=== PATIENT | female | born 1950 | race African-American/Black ===

== ENCOUNTER 2017-12-02 07:21 | Emergency (ER) | payer MEDICARE ==
[2017-12-02] MEDS: IPRATRPIUM/ALBUTEROL 0.5/2.5MG 3 ML NEBU. NEB (08:33)
== END 2017-12-02 09:20 | disposition home or self-care (01) ==
LOC: ER 07:21
DX: R05 Cough (principal); G93.3 Postviral and related fatigue syndromes; E03.9 Hypothyroidism, unspecified; I10 Essential (primary) hypertension
CPT/HCPCS: 71046; 94640; 99284; J7620

== ENCOUNTER 2018-04-21 00:27 | Emergency (ER) | payer MEDICARE ==
[~2018-04-21] VITALS: Ht 167.6 cm; Wt 78.0 kg
[~2018-04-21 00:27] MED LIST: BENZ100C PO; CELE100C PO; DIME1CAP PO; HYDR15SO4 PO; LEVO25TA4 PO; LISI2.5T PO; PROAIR HFA8.5 GM INH
--- NOTE | 2018-04-21 00:58 | PHYS DOC ---
Past Medical History Past Medical History: Hypertension, Hypothyroid, Other Additional Past Medical Histor: MS Past Surgical History: Other Alcohol Use: None Drug Use: None Adult General Chief Complaint Chief Complaint: MULTIPLE COMPLAINTS HPI HPI Patient is a 67 year old female who presents with left-sided back pain and abdominal pain with nausea and vomiting. Patient states that the pain started this evening suddenly and she did not have any diarrhea with it. Patient states at first she thought it felt similar to when she was having her gallbladder attacks but that it was more intense and in the back as well. Patient states that since then multiple episodes of vomiting including one in the emergency department after arriving, the back pain is now gone and that she is starting to feel better. There are currently no other acute complaints at this time. Review of Systems Review of Systems Constitutional: Denies fever or chills [] Eyes: Denies change in visual acuity, redness, or eye pain [] HENT: Denies nasal congestion or sore throat [] Respiratory: Denies cough or shortness of breath [] Cardiovascular: No additional information not addressed in HPI [] GI: Positive for abdominal pain, nausea, vomiting, denies bloody stools or diarrhea [] : Denies dysuria or hematuria [] Musculoskeletal: Positive for back pain, negative joint pain [] Integument: Denies rash or skin lesions [] Neurologic: Denies headache, focal weakness or sensory changes [] Endocrine: Denies polyuria or polydipsia [] All other systems were reviewed and found to be within normal limits, except as documented in this note. Current Medications Current Medications Current Medications Medications (Trade) Dose Ordered Sig/[facility] Start Time Stop Time Status Last Admin Dose Admin Ketorolac Tromethamine (Toradol 30mg Vial) 30 mg 1X ONCE 04/21/18 03:00 04/21/18 03:01 DC 04/21/18 02:41 30 MG Ondansetron HCl (Zofran) 4 mg 1X ONCE 04/21/18 01:30 04/21/18 01:31 DC 04/21/18 01:42 4 MG Sodium Chloride 1,000 ml @ 125 mls/hr 1X ONCE 04/21/18 01:30 04/21/18 09:29 04/21/18 01:43 125 MLS/HR Allergies Allergies Allergies Coded Allergies Type Severity Reaction Last Updated Verified No Known Drug Allergies 12/02/17 No Physical Exam Physical Exam Constitutional: Well developed, well nourished, no acute distress, non-toxic appearance. [] HENT: Normocephalic, atraumatic, bilateral external ears normal, oropharynx moist, no oral exudates, nose normal. [] Eyes: PERRLA, EOMI, conjunctiva normal, no discharge. [] Neck: Normal range of motion, no tenderness, supple, no stridor. [] Cardiovascular:Heart rate regular rhythm, no murmur [] Lungs & Thorax: Bilateral breath sounds clear to auscultation [] Abdomen: Bowel sounds normal, soft, no tenderness, no masses, no pulsatile masses. [] Skin: Warm, dry, no erythema, no rash. [] Back: No tenderness, left CVA tenderness. [] Extremities: No tenderness, no cyanosis, no clubbing, ROM intact, no edema. [] Neurologic: Alert and oriented X 3, normal motor function, normal sensory function, no focal deficits noted. [] Psychologic: Affect normal, judgement normal, mood normal. [] Current Patient Data Vital Signs Vital Signs Date Time Temp Pulse Resp B/P (MAP) Pulse Ox O2 Delivery O2 Flow Rate FiO2 04/21/18 02:35 62 163/72 (102) 96 Room Air 04/21/18 00:55 97.8 20 97.8 Lab Values Laboratory Tests Test 04/21/18 00:50 04/21/18 01:40 White Blood Count 11.9 x10^3/uL (4.0-11.0) H Red Blood Count 5.09 x10^6/uL (3.50-5.40) Hemoglobin 12.5 g/dL (12.0-15.5) Hematocrit 39.0 % (36.0-47.0) Mean Corpuscular Volume 77 fL (79-100) L Mean Corpuscular Hemoglobin 25 pg (25-35) Mean Corpuscular Hemoglobin Concent 32 g/dL (31-37) Red Cell Distribution Width 13.8 % (11.5-14.5) Platelet Count 253 x10^3/uL (140-400) Neutrophils (%) (Auto) 88 % (31-73) H Lymphocytes (%) (Auto) 7 % (24-48) L Monocytes (%) (Auto) 4 % (0-9) Eosinophils (%) (Auto) 0 % (0-3) Basophils (%) (Auto) 1 % (0-3) Neutrophils # (Auto) 10.4 x10^3uL (1.8-7.7) H Lymphocytes # (Auto) 0.9 x10^3/uL (1.0-4.8) L Monocytes # (Auto) 0.5 x10^3/uL (0.0-1.1) Eosinophils # (Auto) 0.0 x10^3/uL (0.0-0.7) Basophils # (Auto) 0.1 x10^3/uL (0.0-0.2) Segmented Neutrophils % 72 % (35-66) H Band Neutrophils % 1 % (0-9) Lymphocytes % 18 % (24-48) L Monocytes % 7 % (0-10) Eosinophils % 1 % (0-5) Basophils % 1 % (0-3) Platelet Estimate Adequate (ADEQUATE) Hypochromasia Slight Sodium Level 144 mmol/L (136-145) Potassium Level 4.0 mmol/L (3.5-5.1) Chloride Level 104 mmol/L (98-107) Carbon Dioxide Level 26 mmol/L (21-32) Anion Gap 14 (6-14) Blood Urea Nitrogen 13 mg/dL (7-20) Creatinine 1.0 mg/dL (0.6-1.0) Estimated GFR (Cockcroft-Gault) 66.9 BUN/Creatinine Ratio 13 (6-20) Glucose Level 135 mg/dL (70-99) H Calcium Level 9.2 mg/dL (8.5-10.1) Total Bilirubin 1.3 mg/dL (0.2-1.0) H Aspartate Amino Transferase (AST) 30 U/L (15-37) Alanine Aminotransferase (ALT) 29 U/L (14-59) Alkaline Phosphatase 99 U/L (46-116) Troponin I Quantitative < 0.017 ng/mL (0.000-0.055) Total Protein 8.1 g/dL (6.4-8.2) Albumin 4.4 g/dL (3.4-5.0) Albumin/Globulin Ratio 1.2 (1.0-1.7) Amylase Level 74 U/L (25-115) Lipase 83 U/L (73-393) Thyroid Stimulating Hormone (TSH) 6.756 uIU/mL (0.358-3.74) H Urine Collection Type Unknown Urine Color Yellow Urine Clarity Cloudy Urine pH 7.0 Urine Specific [place] 1.020 Urine Protein Negative mg/dL (NEG-TRACE) Urine Glucose (UA) Negative mg/dL (NEG) Urine Ketones (Stick) Negative mg/dL (NEG) Urine Blood Small (NEG) Urine Nitrite Negative (NEG) Urine Bilirubin Negative (NEG) Urine Urobilinogen Dipstick 1.0 mg/dL (0.2 mg/dL) Urine Leukocyte Esterase Small (NEG) Urine RBC 11-20 /HPF (0-2) Urine WBC 11-20 /HPF (0-4) Urine Squamous Epithelial Cells Many /LPF Urine Bacteria Many /HPF (0-FEW) Urine Mucus Mod /LPF Laboratory Tests 04/21/18 00:50 Laboratory Tests 04/21/18 00:50 EKG EKG Normal sinus rhythm at a rate of 64[] Radiology/Procedures Radiology/Procedures [facility] [address] [place] [address] IMAGING REPORT Signed PATIENT: CHANCE CAIN ACCOUNT: [id number] : 1950 LOCATION: ER AGE: 67 SEX: F EXAM STATUS: REG ER ORD. PHYSICIAN: JANENE BARCLAY MD REASON: back pain/hematuria PROCEDURE: CT ABDOMEN PELVIS WO CONTRAST CT abdomen and pelvis without contrast: Reason for examination: Back pain and hematuria. Helical images were obtained through the abdomen and pelvis with no intravenous or oral contrast administered. Reconstruction was performed in sagittal and coronal planes. Exposure: One or more of the following individualized dose reduction techniques were utilized for this examination: 1. Automated exposure control 2. Adjustment of the mA and/or kV according to patient size 3. Use of iterative reconstruction technique. The lung oates show some dependent atelectasis. The heart size is normal with no pericardial effusion seen. No abnormalities in the liver, spleen, adrenal glands or pancreas. The gallbladder surgically absent. The right kidney shows no renal masses, renal calculi, hydronephrosis or evidence of obstructive uropathy. The left kidney however shows some perinephric stranding. There is no renal mass but there is hydronephrosis which appears to be due to a 4.4 mm calculus in the mid left ureter. No abnormality seen at the appendix. There are diverticuli in the sigmoid colon but no evidence of diverticulitis. The abdominal aorta and inferior vena cava show no acute abnormalities. No abnormality seen at the bladder, uterus or ovaries. No free fluid or free air seen in the abdomen or pelvis. There are degenerative changes with disc disease at the L5-S1 level. No acute bony abnormalities are seen. IMPRESSION: 4.4 mm calculus in the mid left ureter causing obstructive uropathy with moderate hydronephrosis. Diverticulosis in the sigmoid colon without evidence of diverticulitis. Degenerative spondylosis at the L5-S1 disc level. Electronically signed by: Jessica Taylor MD (04/21/2018 2:53 AM) [facility] DICTATED and SIGNED BY: JESSICA TAYLOR MD DATE: 04/21/18246 [] Course & Med Decision Making Course & Med Decision Making Pertinent Labs and Imaging studies reviewed. (See chart for details) Patient feels markedly better and currently has no acute complaints at this time. [] Dragon Disclaimer Dragon Disclaimer This electronic medical record was generated, in whole or in part, using a voice recognition dictation system. Departure Departure Impression: Primary Impression: Kidney stone on left side Additional Impression: UTI (urinary tract infection) Disposition: 01 HOME, SELF-CARE Condition: STABLE Referrals: SHIRLENE BUNN (PCP) CHACORTA BAKER MD Patient Instructions: Kidney Stones, [id number], Urinary Tract Infection, [id number] Scripts Ciprofloxacin Hcl (CIPRO) 250 Mg Tablet 1 TAB PO BID, #14 TAB Prov: JANENE BARCLAY MD 04/21/18 Promethazine Hcl (PROMETHAZINE HCL) 25 Mg Tablet 1 TAB PO PRN Q6HRS, #20 TAB Prov: JANENE BARCLAY MD 04/21/18 Oxycodone/Apap 5-325 (PERCOCET 5-325 MG TABLET) 1 Each Tablet 1-2 TAB PO Q4-6HRS, #40 TAB Prov: JANENE BARCLAY MD 04/21/18 Tamsulosin Hcl (FLOMAX) 0.4 Mg Cap.er.24h 1 CAP PO DAILY for 7 Days, #7 CAP 1 Refill Prov: JANENE BARCLAY MD 04/21/18 Problem Qualifiers JANENE BARCLAY MD Apr 21, 2018 00:58
[2018-04-21] MEDS ORDERED: IV NORMAL SALINE 1000ML BAG 1,000 ML IV ONE (01:30)
[2018-04-21] MEDS ORDERED: ONDANSETRON PF 4 MG/2 ML VIAL. IV ONE (01:30)
[2018-04-21 01:34] LABS: BASO # 0.1 x10^3/uL (0.0-0.2); BASO % 1 % (0-3); EOS % 0 % (0-3); HEMOGLOBIN 12.5 g/dL (12.0-15.5); LYMPH # 0.9 x10^3/uL (1.0-4.8); LYMPH % 7 % (24-48); MEAN CORPUSCULAR HEMOGLOBIN 25 pg (25-35); MEAN CORPUSCULAR HGB CONC 32 g/dL (31-37); MEAN CORPUSCULAR VOLUME 77 fL (79-100); MONO # 0.5 x10^3/uL (0.0-1.1); MONO % 4 % (0-9); NEUT # 10.4 x10^3uL (1.8-7.7); NEUT % 88 % (31-73); PLATELET COUNT 253 x10^3/uL (140-400); RED BLOOD COUNT 5.09 x10^6/uL (3.50-5.40); RED CELL DISTRIBUTION WIDTH 13.8 % (11.5-14.5); WHITE BLOOD COUNT 11.9 x10^3/uL (4.0-11.0)
[2018-04-21 01:45] LABS: CALCIUM 9.2 mg/dL (8.5-10.1); GFR 66.9
[2018-04-21 01:51] LABS: ALBUMIN 4.4 g/dL (3.4-5.0); ALBUMIN/GLOBULIN RATIO 1.2 (1.0-1.7); TOTAL BILIRUBIN 1.3 mg/dL (0.2-1.0); TOTAL PROTEIN 8.1 g/dL (6.4-8.2)
[2018-04-21 02:04] LABS: BILIRUBIN,URINE NEGATIVE (NEG); CLARITY,URINE CLOUDY; COLOR,URINE YELLOW; NITRITE,URINE NEGATIVE (NEG); PROTEIN,URINE NEGATIVE (NEG-TRACE)
[2018-04-21 02:17] LABS: BACTERIA,URINE MANY /HPF (0-FEW); SQUAMOUS EPITHELIAL CELL,UR MANY /LPF
--- NOTE | 2018-04-21 02:56 | RAD ---
CT abdomen and pelvis without contrast: Reason for examination: Back pain and hematuria. Helical images were obtained through the abdomen and pelvis with no intravenous or oral contrast administered. Reconstruction was performed in sagittal and coronal planes. Exposure: One or more of the following individualized dose reduction techniques were utilized for this examination: 1. Automated exposure control 2. Adjustment of the mA and/or kV according to patient size 3. Use of iterative reconstruction technique. The lung oates show some dependent atelectasis. The heart size is normal with no pericardial effusion seen. No abnormalities in the liver, spleen, adrenal glands or pancreas. The gallbladder surgically absent. The right kidney shows no renal masses, renal calculi, hydronephrosis or evidence of obstructive uropathy. The left kidney however shows some perinephric stranding. There is no renal mass but there is hydronephrosis which appears to be due to a 4.4 mm calculus in the mid left ureter. No abnormality seen at the appendix. There are diverticuli in the sigmoid colon but no evidence of diverticulitis. The abdominal aorta and inferior vena cava show no acute abnormalities. No abnormality seen at the bladder, uterus or ovaries. No free fluid or free air seen in the abdomen or pelvis. There are degenerative changes with disc disease at the L5-S1 level. No acute bony abnormalities are seen. IMPRESSION: 4.4 mm calculus in the mid left ureter causing obstructive uropathy with moderate hydronephrosis. Diverticulosis in the sigmoid colon without evidence of diverticulitis. Degenerative spondylosis at the L5-S1 disc level. Electronically signed by: Jessica Verma MD (04/21/2018 2:53 AM) [facility]
[2018-04-21] MEDS ORDERED: KETOROLAC 30 MG/ML VIAL. IV ONE (03:00)
[2018-04-21 03:44] LABS: % BANDS 1 % (0-9); % BASOS 1 % (0-3); % EOS 1 % (0-5); % LYMPHS 18 % (24-48); % MONOS 7 % (0-10); % SEGS 72 % (35-66); HYPOCHROMIA SLIGHT; PLT ESTIMATE ADEQUATE (ADEQUATE)
[2018-04-21] MEDS ORDERED: TAMS0.4C97 PO (04:09)
[2018-04-21] MEDS ORDERED: OXYC-323 PO (04:09)
[2018-04-21] MEDS ORDERED: CIPR250T30 PO (04:09)
[2018-04-21] MEDS ORDERED: PROM25TA10 PO (04:09)
[2018-04-21 04:22] VITALS: BP 161/77
[2018-04-21] MEDS ORDERED: TAMSULOSIN 0.4 MG CAP.ER.24H. PO ONE (04:30)
--- NOTE | 2018-04-21 07:17 | EKG ---
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
== END 2018-04-21 04:30 | disposition home or self-care (01) ==
LOC: ER 00:27
DX: N20.0 Calculus of kidney (principal); N39.0 Urinary tract infection, site not specified; R11.2 Nausea with vomiting, unspecified; I10 Essential (primary) hypertension; E03.9 Hypothyroidism, unspecified
CPT/HCPCS: 36415; 74176; 80053; 81001; 82150; 83690; 84443; 84484; 85007; 85025; 87086; 87186; 93005; 96361; 96374; 96375; 99285; J1885; J2405; J7030